=== PATIENT | male | born 1940 | race Caucasian/White ===

== ENCOUNTER 2016-10-23 11:54 | Emergency (ER) | payer OTHER ==
[~2016-10-23] VITALS: Ht 167.6 cm; Wt 66.0 kg
[2016-10-23 12:06] VITALS: BP 170/71; PULSE 86; RESP 18; TEMP 98; O2SAT 97
[2016-10-23] MEDS ORDERED: SIMV40TA PO (12:12)
[2016-10-23] MEDS ORDERED: ASPI81CH CHEW (12:12)
[2016-10-23] MEDS ORDERED: b/p med (12:12)
[2016-10-23] MEDS ORDERED: TETANUS/DIPHTHERIA TOXOID ADULT 0.5 ML VIAL IM ONE (12:15)
[2016-10-23] MEDS ORDERED: SODIUM CHLORIDE 0.9% FLUSH 10 ML FLUSH IVF PRN (12:15)
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
[2016-10-23 12:40] LABS: AUTOMATED NEUTROPHIL # 4.4 TH/MM3 (1.8-7.7); BASOPHIL % 0.6 % (0.0-2.0); EOSINOPHIL # 0.4 TH/MM3 (0-0.4); EOSINOPHIL % 5.8 % (0.0-4.0); HEMATOCRIT 38.3 % (39.0-51.0); HEMO FLAGS DIFF FINAL; LYMPH % 20.1 % (9.0-44.0); LYMPHOCYTE # 1.3 TH/MM3 (1.0-4.8); MEAN CELL VOLUME 86.9 FL (80.0-100.0); MEAN CORPUSCULAR HEMOGLOBIN 30.2 PG (27.0-34.0); MEAN CORPUSCULAR HGB CONC 34.8 % (32.0-36.0); NEUT % 64.5 % (16.0-70.0); PLATELET COUNT 160 TH/MM3 (150-450); RED BLOOD COUNT 4.41 MIL/MM3 (4.50-5.90); RED CELL DISTRIBUTION WIDTH 14.9 % (11.6-17.2); WHITE BLOOD COUNT 6.7 TH/MM3 (4.0-11.0)
[2016-10-23 12:49] LABS: CHLORIDE 104 MEQ/L (98-107); POTASSIUM 4.3 MEQ/L (3.5-5.1); SODIUM (NA) 138 MEQ/L (136-145)
[2016-10-23 12:53] LABS: ANION GAP 7 MEQ/L (5-15); BICARBONATE 26.8 MEQ/L (21.0-32.0); BLOOD UREA NITROGEN 20 MG/DL (7-18)
[2016-10-23 12:56] LABS: ALT (GPT) 26 U/L (12-78); AST (GOT) 25 U/L (15-37); GLOMERULAR FILTRATION RATE 59 ML/MIN (>89)
[2016-10-23 12:57] LABS: TOTAL BILIRUBIN ADULT 0.5 MG/DL (0.2-1.0)
[2016-10-23 12:59] LABS: ALKALINE PHOSPHATASE 77 U/L (45-117)
[2016-10-23 13:03] LABS: CREATINE KINASE 57 U/L (39-308)
[2016-10-23 13:48] LABS: APTT (PATIENT) 24.9 SEC (24.3-30.1); INTERNATIONAL NORMALIZED RATIO 0.9 RATIO
[2016-10-23 17:24] VITALS: BP 183/86; PULSE 73; O2SAT 96
[2016-10-23 18:13] LABS: AUTOMATED NEUTROPHIL # 3.9 TH/MM3 (1.8-7.7); BASOPHIL % 0.6 % (0.0-2.0); EOSINOPHIL # 0.4 TH/MM3 (0-0.4); EOSINOPHIL % 6.1 % (0.0-4.0); HEMO FLAGS DIFF FINAL; LYMPH % 24.7 % (9.0-44.0); LYMPHOCYTE # 1.6 TH/MM3 (1.0-4.8); MEAN CELL VOLUME 87.9 FL (80.0-100.0); MEAN CORPUSCULAR HEMOGLOBIN 29.5 PG (27.0-34.0); MEAN CORPUSCULAR HGB CONC 33.5 % (32.0-36.0); MONO % 7.6 % (0.0-8.0); PLATELET COUNT 163 TH/MM3 (150-450); RED BLOOD COUNT 4.55 MIL/MM3 (4.50-5.90); RED CELL DISTRIBUTION WIDTH 15.4 % (11.6-17.2); WHITE BLOOD COUNT 6.4 TH/MM3 (4.0-11.0)
[2016-10-23 18:20] LABS: CHLORIDE 105 MEQ/L (98-107); SODIUM (NA) 138 MEQ/L (136-145)
[2016-10-23 18:24] LABS: ANION GAP 7 MEQ/L (5-15); BICARBONATE 26.3 MEQ/L (21.0-32.0); BLOOD UREA NITROGEN 18 MG/DL (7-18)
[2016-10-23 18:27] LABS: ALT (GPT) 26 U/L (12-78); AST (GOT) 27 U/L (15-37); GLOMERULAR FILTRATION RATE 65 ML/MIN (>89)
[2016-10-23 18:29] LABS: TOTAL BILIRUBIN ADULT 0.6 MG/DL (0.2-1.0)
[2016-10-23 18:30] LABS: ALKALINE PHOSPHATASE 75 U/L (45-117)
[2016-10-23 18:52] LABS: CREATINE KINASE 68 U/L (39-308)
[2016-10-23 19:10] VITALS: BP 187/93; PULSE 73; RESP 18; O2SAT 95
--- NOTE | 2016-10-24 14:11 | EKG ---
Date Performed: 10/23/2016 Time Performed: 12:34:30 PTAGE: 76 years EKG: Sinus rhythm LEFT VENTRICULAR HYPERTROPHY AND ST-T CHANGE ABNORMAL ECG NO PREVIOUS TRACING DOCTOR: Paula Melchor Interpretating Date/Time 10/24/2016 14:07:16
== END 2016-10-23 19:20 | disposition home or self-care (01) ==
LOC: PHEFT 11:54
DX: S81.852A Open bite, left lower leg, initial encounter (principal); R94.31 Abnormal electrocardiogram [ECG] [EKG]; I10 Essential (primary) hypertension; E78.00 Pure hypercholesterolemia, unspecified; Z23 Encounter for immunization; W59.11XA Bitten by nonvenomous snake, initial encounter
CPT/HCPCS: 80053; 82550; 85025; 85379; 85384; 85610; 85730; 90471; 90714; 93005

== ENCOUNTER 2017-05-28 10:55 | Emergency (ER) | payer OTHER ==
[~2017-05-28] VITALS: Ht 167.6 cm; Wt 63.0 kg
[~2017-05-28 10:55] MED LIST: ASPI-516 CHEW; SIMV40TA PO; b/p med
[2017-05-28 10:58] VITALS: BP 194/86; PULSE 105; RESP 16; TEMP 98.8; O2SAT 95
[2017-05-28] MEDS ORDERED: guaiFENesin/CODEINE SYRUP 200 MG/20 MG/10 ML CUP PO ONE (11:15)
--- NOTE | 2017-05-28 11:17 | PD ---
HPI Chief Complaint: Respiratory Symptoms Time Seen by Provider: 11:02 Travel History International Travel<30 days: No Contact w/Intl Traveler<30days: No Traveled to known affect area: No History of Present Illness HPI 76yo M with PMH of CAD s/p CABG 04/01/[address] Hendrickson here with c/o cough for 2 days. Said his scar area is more tender with cough but no chest pain. Said when he walks, he feels a little more sob than normal today. Denies any fever, n/v, abdominal pain, focal weakness or numbness. PFSH Past Medical History Cardiovascular Problems: Yes High Cholesterol: Yes Hypertension: Yes Social History Alcohol Use: Yes (2 x per week) Tobacco Use: No Substance Use: No Allergies-Medications (Allergen,Severity, Reaction): Coded Allergies: No Known Allergies (Unverified Adverse Reaction, Unknown, 05/28/17) Reported Meds & Prescriptions Reported Meds & Active Scripts Active Reported [b/p med] Aspirin 81 Mg Chew 81 Mg CHEW DAILY Review of Systems Except as stated in HPI: all other systems reviewed are Neg Physical Exam Narrative GENERAL: 76yo M not in distress. SKIN: Focused skin assessment warm/dry. HEAD: Atraumatic. Normocephalic. EYES: Pupils equal and round. No scleral icterus. No injection or drainage. ENT: No nasal bleeding or discharge. Mucous membranes pink and moist. NECK: Trachea midline. No JVD. CARDIOVASCULAR: Regular rate and rhythm. No murmur appreciated. RESPIRATORY: No accessory muscle use. Clear to auscultation. Breath sounds equal bilaterally. CHEST WALL: +Midsternal scar well healed. Not tender to palpation. No erythema. No crepitus. No edema. GASTROINTESTINAL: Abdomen soft, non-tender, nondistended. MUSCULOSKELETAL: No obvious deformities. No clubbing. No cyanosis. No edema. NEUROLOGICAL: Awake and alert. No obvious cranial nerve deficits. Motor grossly within normal limits. Normal speech. PSYCHIATRIC: Appropriate mood and affect; insight and judgment normal. Data Data Last Documented VS Vital Signs Date Time Temp Pulse Resp B/P (MAP) Pulse Ox O2 Delivery O2 Flow Rate FiO2 05/28/17 12:23 92 18 142/77 (98) 93 Room Air 05/28/17 10:58 98.8 Orders Orders Complete Blood Count With Diff (05/28/17 11:10) Basic Metabolic Panel (Bmp) (05/28/17 11:10) B-Type Natriuretic Peptide (05/28/17 11:10) Act Partial Throm Time (Ptt) (05/28/17 11:10) Prothrombin Time / Inr (Pt) (05/28/17 11:10) Troponin I (05/28/17 11:10) Influenzae A/B Antigen (05/28/17 11:10) Electrocardiogram (05/28/17 11:10) Chest, Single Ap (05/28/17 11:10) Guaifen-Cod 200-20 Mg/10ml Liq (Robituss (05/28/17 11:15) Labs Laboratory Tests Test 05/28/17 11:30 White Blood Count 6.2 TH/MM3 Red Blood Count 4.51 MIL/MM3 Hemoglobin 12.1 GM/DL Hematocrit 37.8 % Mean Corpuscular Volume 83.8 FL Mean Corpuscular Hemoglobin 26.9 PG Mean Corpuscular Hemoglobin Concent 32.1 % Red Cell Distribution Width 16.3 % Platelet Count 140 TH/MM3 Mean Platelet Volume 7.9 FL Neutrophils (%) (Auto) 74.4 % Lymphocytes (%) (Auto) 11.4 % Monocytes (%) (Auto) 10.3 % Eosinophils (%) (Auto) 3.6 % Basophils (%) (Auto) 0.3 % Neutrophils # (Auto) 4.7 TH/MM3 Lymphocytes # (Auto) 0.7 TH/MM3 Monocytes # (Auto) 0.6 TH/MM3 Eosinophils # (Auto) 0.2 TH/MM3 Basophils # (Auto) 0.0 TH/MM3 CBC Comment DIFF FINAL Differential Comment Prothrombin Time 10.2 SEC Prothromb Time International Ratio 1.0 RATIO Activated Partial Thromboplast Time 25.4 SEC Blood Urea Nitrogen 21 MG/DL Creatinine 1.50 MG/DL Random Glucose 103 MG/DL Calcium Level 8.8 MG/DL Sodium Level 138 MEQ/L Potassium Level 4.0 MEQ/L Chloride Level 102 MEQ/L Carbon Dioxide Level 27.0 MEQ/L Anion Gap 9 MEQ/L Estimat Glomerular Filtration Rate 46 ML/MIN Troponin I 0.02 NG/ML B-Type Natriuretic Peptide 143 PG/ML MDM Medical Decision Making Medical Screen Exam Complete: Yes Emergency Medical Condition: Yes Interpretation(s) EKG: NSR 98bpm. Normal axis. LVH. TWI II, III, aVF, V4-V6. Differential Diagnosis Bronchitis vs. pneumonia vs. valvular disease Narrative Course 76yo well appearing male here with 2 days of cough. He said he just wants a zpak and [facility] this morning but was not given zpak since he had recent heart surgery and advise for a more thorough work up. Labs reviewed, no leukocytosis. BUN/creatinine 21/1.50 which is mildly elevated from baseline. Troponin negative at 0.02. BNP mildly elevated at 143. Influenza negative. CXR showed no acute disease. Pt reevaluated at bedside after robitussin with codeine and said he feels much better and coughing has improved. Pt has been ambulating in the ED without sob and wants to go home. Said he has appointment with his insurance follow up rep in 2 days. Return precautions given. Diagnosis Primary Impression: Cough Patient Instructions: General Instructions Departure Forms: Tests/Procedures Additional Instructions: Please follow up with your insurance follow up rep this Sunday. Return to the ED if symptoms worsen. Med/Other Pt SpecificInfo: Prescription(s) given Scripts Guaifenesin-Codeine Liq (Guaifenesin-Codeine Liq) 100-10 Mg/5 Ml Soln 5 ML PO Q6H Y for COUGH for 5 Days, #1 BOTTLE 0 Refills Prov: Margaret Browning DO 05/28/17 Disposition: 01 DISCHARGE HOME Condition: Stable Margaret Browning DO May 28, 2017 11:17
--- NOTE | 2017-05-28 11:38 | RADRPT ---
EXAM DATE/TIME: 05/28/2017 11:11 [facility] COMPARISON: No previous studies available for comparison. INDICATIONS : Pt has had a cough for 2 days. Pt [facility]. Pt had open heart surgery on Apr 11, 2017. MEDICAL HISTORY : None. SURGICAL HISTORY : None. Open Heart ENCOUNTER: Initial ACUITY: 2 days PAIN SCORE: 0/10 LOCATION: FINDINGS: A single view of the chest demonstrates the lungs to be symmetrically aerated without evidence of mas s, infiltrate or effusion. Sternal wires aortic valve are noted. The cardiomediastinal contours are unremarkable. Osseous structures are intact. CONCLUSION: No acute disease. Jose Draper MD FACR on May 28, 2017 at 11:35 Board Certified Radiologist. This report was verified electronically.
[2017-05-28 11:51] LABS: AUTOMATED NEUTROPHIL # 4.7 TH/MM3 (1.8-7.7); BASOPHIL % 0.3 % (0.0-2.0); EOSINOPHIL # 0.2 TH/MM3 (0-0.4); EOSINOPHIL % 3.6 % (0.0-4.0); HEMATOCRIT 37.8 % (39.0-51.0); HEMOGLOBIN 12.1 GM/DL (13.0-17.0); LYMPH % 11.4 % (9.0-44.0); LYMPHOCYTE # 0.7 TH/MM3 (1.0-4.8); MEAN CELL VOLUME 83.8 FL (80.0-100.0); MEAN CORPUSCULAR HEMOGLOBIN 26.9 PG (27.0-34.0); MEAN CORPUSCULAR HGB CONC 32.1 % (32.0-36.0); MEAN PLATELET VOLUME 7.9 FL (7.0-11.0); MONO % 10.3 % (0.0-8.0); MONOCYTE # 0.6 TH/MM3 (0-0.9); NEUT % 74.4 % (16.0-70.0); PLATELET COUNT 140 TH/MM3 (150-450); RED BLOOD COUNT 4.51 MIL/MM3 (4.50-5.90); RED CELL DISTRIBUTION WIDTH 16.3 % (11.6-17.2); WHITE BLOOD COUNT 6.2 TH/MM3 (4.0-11.0)
[2017-05-28 12:03] LABS: CALCIUM 8.8 MG/DL (8.5-10.1)
[2017-05-28 12:07] LABS: CREATININE 1.5 MG/DL (0.60-1.30)
[2017-05-28 12:12] LABS: TROPONIN I 0.02 NG/ML (0.02-0.05)
[2017-05-28 12:16] LABS: PROTHROMBIN TIME - PATIENT 10.2 SEC (9.8-11.6)
[2017-05-28 12:23] VITALS: BP 142/77; PULSE 92; RESP 18; O2SAT 93
[2017-05-28] MEDS ORDERED: GUAI100S5 PO (13:07)
[2017-05-28 13:11] VITALS: PULSE 90; RESP 18; O2SAT 94
--- NOTE | 2017-05-28 17:24 | EKG ---
Date Performed: 05/28/2017 Time Performed: 11:26:17 PTAGE: 76 years EKG: Sinus rhythm POSSIBLE LEFT ATRIAL ENLARGEMENT LEFT VENTRICULAR HYPERTROPHY AND ST-T CHANGE Compared to previous t racing, nonspecific ST-T changes are now present ABNORMAL ECG PREVIOUS TRACING : 10/23/2016 12.34 DOCTOR: Rajesh Wheeler Interpretating Date/Time 05/28/2017 17:23:10
== END 2017-05-28 13:22 | disposition home or self-care (01) ==
LOC: PHED 10:55
DX: R05 Cough (principal); Z95.1 Presence of aortocoronary bypass graft; I25.10 Atherosclerotic heart disease of native coronary artery without angina pectoris; I10 Essential (primary) hypertension; R94.31 Abnormal electrocardiogram [ECG] [EKG]; R06.02 Shortness of breath
CPT/HCPCS: 71045; 80048; 83880; 84484; 85025; 85610; 85730; 87804; 93005